=== PATIENT | male | born 1935 | race Caucasian/White ===

== ENCOUNTER 2016-03-20 16:50 | Outpatient (CLI) | payer OTHER ==
--- NOTE | 2016-03-20 17:19 | DIAGNOSTIC IMAGING REPORT ---
PROCEDURE: XR CHEST 2 VIEW INDICATION: URI, initial encounter TECHNIQUE: PA and lateral view. COMPARISON: None. FINDINGS: Mild hyperinflation but lungs are clear. Cardiovascular structures are normal. Bony thorax is unremarkable. IMPRESSION: 1. Hyperinflation suggestive of COPD 2. Results discussed with Dr. Steele
== END 2016-03-20 23:00 ==
LOC: XR SRH 16:50
DX: R91.8 Other nonspecific abnormal finding of lung field (principal); R06.2 Wheezing; J06.9 Acute upper respiratory infection, unspecified; I48.91 Unspecified atrial fibrillation; I10 Essential (primary) hypertension